=== PATIENT | female | born 1955 | race African-American/Black ===

== ENCOUNTER → 2024-03-31 | Day surgery (SDC) | payer OTHER ==
[2024-03-28 12:05] LABS: BASOPHILS # (AUTO) 0.1 (0.0-0.1); BASOPHILS % 1.2 % (0.0-1.0); EOSINOPHILS # (AUTO) 0.1 (0.0-0.4); EOSINOPHILS % 2.6 % (0.0-6.0); HEMATOCRIT 53.9 % (34.2-44.1); HEMOGLOBIN 16.4 g/dL (12.0-16.0); LYMPHOCYTES % 39.7 % (18.0-39.1); MEAN CORPUSCULAR HEMOGLOBIN 31.4 pg (28-32); MEAN CORPUSCULAR HGB CONC 30.4 g/dL (31-35); MEAN CORPUSCULAR VOLUME 103.1 fL (81-99); MONOCYTES # (AUTO) 0.4 (0.2-0.8); MONOCYTES % 7.9 % (4.4-11.3); NEUTROPHILS # (AUTO) 2.4 (2.1-6.9); NEUTROPHILS % 48.4 % (38.7-80.0); PLATELET COUNT 188 x10e3/uL (140-360); RED BLOOD COUNT 5.23 x10e6/uL (3.6-5.1); RED CELL DISTRIBUTION WIDTH 15.3 % (11.7-14.4); WHITE BLOOD COUNT 4.96 x10e3/uL (4.8-10.8)
[~2024-03-31] MED LIST: ACETAMINOPHEN-1 EAC4 PO; ARICEPT5 MG PO; B-121000 MC2; BUPIVACAINE 0.5%/EPI 30 ML SDV INJ ONE; BUPIVACAINE HCL 0.5% 10ML MPF VIAL INJ ONE; DIOVAN160 MG PO; EYE LUBRICANT OPTH OINT 3.5GM TUBE OP ONE; FENTANYL CITRATE/PF 100MCG/2 ML INJ ONE; FEROSUL325 MG PO; LIDOCAINE 1% W/EPINEPHRINE 20 ML VIAL ONE; MEMANTINE HCL5 MG PO; MIDAZOLAM HCL 2 MG/2 ML VIAL ONE; MONTELUKAST SOD10 MG PO; PREDNISONE10 MG PO; PROPOFOL IV EMULSION 10 MG/ML 20 ML VIAL ONE; PROVENTIL HFA6.7 GM INH; REMERON30 MG PO
[2024-03-31] MEDS: LACTATED RINGER'S 1,000 ML ONE (07:00)
[2024-03-31] MEDS: ALBUTEROL/IPRATROPIUM 3 ML NEB ONE (07:27)
[2024-03-31 09:00] VITALS: BP 132/77; PULSE 80; RESP 15; TEMP 97.3; O2SAT 90
== END | disposition home or self-care (01) ==
LOC: OR 06:07
PROVIDERS: ATTEND Plastic Surgery
DX: L72.3 Sebaceous cyst (principal); I10 Essential (primary) hypertension; J44.9 Chronic obstructive pulmonary disease, unspecified; D64.9 Anemia, unspecified; F32.A Depression, unspecified; F03.90 Unspecified dementia, unspecified severity, without behavioral disturbance, psychotic disturbance, mood disturbance, and anxiety; F17.200 Nicotine dependence, unspecified, uncomplicated; Z01.810 Encounter for preprocedural cardiovascular examination; Z01.812 Encounter for preprocedural laboratory examination; Z01.818 Encounter for other preprocedural examination; Z99.81 Dependence on supplemental oxygen; Z79.899 Other long term (current) drug therapy
CPT/HCPCS: 21012; 36415; 71046; 85025; 93005; 94640; J0690; J2250; J2704; J3010; J7121